=== PATIENT | female | born 1980 | race Caucasian/White ===

== ENCOUNTER 2018-09-10 15:56 | Emergency (ER) | payer OTHER ==
[~2018-09-10] VITALS: Ht 167.6 cm; Wt 58.0 kg
[~2018-09-10 15:56] MED LIST: PREN1TAB62 PO
[2018-09-10 16:06] VITALS: Ht 167.6 cm; Wt 58.0 kg
[2018-09-10] MEDS ORDERED: ALBUTEROL 0.083% (NEB) 2.5 MG/3 ML AMP NEB STA (16:26)
[2018-09-10] MEDS ORDERED: predniSONE 20 MG TAB PO STA (16:26)
[2018-09-10] MEDS ORDERED: IPRATROPIUM (NEB) 0.5 MG/2.5 ML AMP NEB STA (16:26)
--- NOTE | 2018-09-10 16:41 | ERD ---
ER Documentation Chief Complaint Chief Complaint COUGH WITH SOB X 2 WEEKS, CONGESTION HPI 38-year-old female with no reported past medical history, active smoker (former 3 pack a day smoker since age 13, now down to 1 to 3 cigarettes/day) presents with persistent cough over the past 2 weeks. Patient reports cough is productive of thick yellow sputum with intermittent shortness of breath. Has had associated sore throat but otherwise denies fever, chills, chest pain, dyspnea on exertion, nausea, vomiting, diarrhea, abdominal pain, urinary symptoms. Has tried Mucinex, Robitussin, pediatric cough medication for her symptoms which only helped somewhat. Also tried a friend's albuterol which only modestly helped with symptoms. She otherwise without complaint at the time of evaluation speaking in full sentences in no acute distress. ROS All systems reviewed and are negative except as per history of present illness. Medications Home Meds Active Scripts Albuterol Sulfate* (Albuterol Sulfate* Neb) 0.083%-3 Ml Neb, 2.5 MG NEB Q4 PRN for SHORTNESS OF BREATH, #30 EA Prov:SUMANTH GREGORIO-C 09/10/18 Prednisone* (Prednisone*) 20 Mg Tab, 40 MG PO DAILY for 4 Days, TAB Prov:SUMANTH GREGORIO PA-C 09/10/18 Dextromethorphan Hb-Promethazine Hcl* (Promethazine DM* Syrup) 473 Ml Syrup, 5 ML PO Q6 PRN for COUGH for 7 Days, ML Prov:SUMANTH GREGORIO PA-C 09/10/18 Reported Medications Vit-Iron Fumarate-FA ( Vitamin Tablet) 1 Each Tablet, 1 TAB PO DAILY, TAB 04/13/15 Allergies Allergies: Coded Allergies: No Known Allergy (Unverified , 09/10/18) FmHx Family History: No diabetes, No coronary disease, No other Physical Exam Vitals Vital Signs Date Temp Pulse Resp B/P (MAP) Pulse Ox O2 O2 Flow FiO2 Time Delivery Rate 09/10/18 97 20 98 21 16:52 09/10/18 99.0 99 26 122/59 95 16:06 (80) Physical Exam I have reviewed the triage vital signs. Const: Well nourished, well developed, appears stated age Eyes: PERRL, no conjunctival injection HENT: NCAT, Neck supple without meningismus CV: RRR, Warm, well-perfused extremities RESP: limited by persistent cough, mild expiratory rhonchi to bilateral lung clark, no gross wheezing or crackles GI: soft, non-tender, non-distended, no masses MSK: No gross deformities appreciated Skin: Warm, dry. No rashes Neuro: grossly non focal Psych: Appropriate mood and affect. Results 24 hrs Current Medications Medications Dose Sig/Jeanne Start Time Status Last (Trade) Ordered Route PRN Stop Time Admin Dose Reason Admin Albuterol 2.5 mg ONCE STAT 09/10/18 DC 09/10/18 (Proventil NEB 16:26 16:49 0.083% (Neb)) 09/10/18 16:28 Ipratropium 0.5 mg ONCE STAT 09/10/18 DC 09/10/18 [place] NEB 16:26 16:49 (Atrovent 09/10/18 16:28 0.02% (Neb)) Prednisone 60 mg ONCE STAT 09/10/18 DC 09/10/18 (Prednisone) PO 16:26 16:46 09/10/18 16:28 Procedures/MDM 38-year-old female smoker who presents with + cough and sputum change + wheezing + SOB. The patient appears to be suffering from uncomplicated bronchitis. Based on the history, exam, and any testing done, I dont suspect any other cause emergency cause of respiratory distress, such as, but not limited to, pneumonia, coronary syndrome, congestive heart failure, pulmonary embolism, or pneumothorax. ED course: Nebulizers, steroids, chest x-ray with finding acute finding Plan: I will treat the patient with bronchodilators, steroids, then reassess. Discharge with short course of steroids, promethazine, albuterol, strict return return precautions explained Reassessment: After treatment, the patients shortness of breath is resolved, and their lung exam has returned to baseline. They are comfortable and want to go home. DISPOSITION PLAN: We discussed follow up with the patient's primary care doctor within 24 to 48 hours. Patient counseled regarding my diagnostic impression and care plan. Prior to discharge all questions answered. Pt agrees with treatment plan and understands strict return precautions. Precautionary instructions provided including instructions to return to the ER if not improving or for any worsening or changing symptoms or concerns. Disclaimer: Inadvertent spelling and grammatical errors are likely due to EHR/dictation software use and do not reflect on the overall quality of patient care. Also, please note that the electronic time recorded on this note does not necessarily reflect the actual time of the patient encounter. Departure Diagnosis: Primary Impression: Cough Condition: Stable Patient Instructions: Bronchitis With Wheezing (Adult), Cough, Chronic, Uncertain Cause, (Adult) Additional Instructions: Call your primary care doctor TOMORROW for an appointment during the next 2-3 days.See the doctor sooner or return here if your condition worsens before your appointment time. SUMANTH GREGORIO PA-C Sep 10, 2018 16:40
[2018-09-10] MEDS ORDERED: PRED20TA PO (18:18)
[2018-09-10] MEDS ORDERED: ALBU2.5V3 NEB (18:18)
[2018-09-10] MEDS ORDERED: D-ME473S2 PO (18:18)
[2018-09-10 18:32] VITALS: BP 101/57; PULSE 95; RESP 18
== END 2018-09-10 18:34 | disposition home or self-care (01) ==
LOC: FTE 15:56
DX: R05 Cough (principal); F17.210 Nicotine dependence, cigarettes, uncomplicated
CPT/HCPCS: 71046; 94664; J7512; Z7502; Z7610

== ENCOUNTER 2018-10-10 01:13 | Emergency (ER) | payer OTHER ==
[~2018-10-10] VITALS: Ht 167.6 cm; Wt 50.3 kg
[~2018-10-10 01:13] MED LIST changes: +ALBU2.5V3 NEB; +D-ME473S2 PO; +PRED20TA PO
[2018-10-10 01:14] VITALS: Ht 167.6 cm; Wt 50.3 kg
[2018-10-10 05:00] VITALS: BP 84/61; PULSE 83; RESP 17
== END 2018-10-10 12:17 | disposition home or self-care (01) ==
LOC: E/R 01:13
DX: T40.1X1A Poisoning by heroin, accidental (unintentional), initial encounter (principal); R40.2142 Coma scale, eyes open, spontaneous, at arrival to emergency department; R40.2362 Coma scale, best motor response, obeys commands, at arrival to emergency department; R40.2252 Coma scale, best verbal response, oriented, at arrival to emergency department; F17.210 Nicotine dependence, cigarettes, uncomplicated; T51.91XA Toxic effect of unspecified alcohol, accidental (unintentional), initial encounter; T43.621A Poisoning by amphetamines, accidental (unintentional), initial encounter; X58.XXXA Exposure to other specified factors, initial encounter; Y92.9 Unspecified place or not applicable; Z91.040 Latex allergy status
CPT/HCPCS: 71045; 81025